=== PATIENT | male | born 1940 | race Caucasian/White ===

== ENCOUNTER 2016-04-16 20:18 | Observation (INO) | payer MEDICARE, OTHER ==
[~2016-04-16] VITALS: Ht 182.9 cm; Wt 94.5 kg
[~2016-04-16 20:18] MED LIST: APIX5TAB PO; ASPI-664 PO; ATOR20TA38 PO; CLOP75TA27 PO; LISI-524 PO; METO-448 PO; NIT4 SL; OMEP20CA9 PO; TAMS-14 PO
[2016-04-16 21:06] LABS: BASOPHIL # 0.1 10^3/ul (0.0-0.1); BASOPHILS % 0.7 % (0.0-2.0); EOSINOPHILS # 0.2 10^3/ul (0.0-0.5); EOSINOPHILS % 3.4 % (0.0-7.0); HEMATOCRIT 34.4 % (42.0-52.0); HEMOGLOBIN 11.4 g/dl (14.0-18.0); LYMPHOCYTES # 3.6 10^3/ul (0.8-2.9); LYMPHOCYTES % 48.4 % (15.0-51.0); MEAN CORPUSCULAR HEMOGLOBIN 30.7 pg (29.0-33.0); MEAN CORPUSCULAR HGB CONC 33.1 g/dl (32.0-37.0); MEAN CORPUSCULAR VOLUME 92.7 fl (82.0-101.0); MEAN PLATELET VOLUME 8.6 fl (7.4-10.4); MONOCYTE # 0.5 10^3/ul (0.3-0.9); MONOCYTES % 6.9 % (0.0-11.0); NEUTROPHILS % 40.6 % (39.0-77.0); PLATELET COUNT 197 10^3/UL (140-440); RED BLOOD COUNT 3.71 10^6/ul (4.70-6.10); RED CELL DISTRIBUTION WIDTH 14.5 % (11.5-14.5); UNCORRECTED WBC 7.4 10^3/ul (4.8-10.8); WHITE BLOOD COUNT 7.4 10^3/ul (4.8-10.8)
[2016-04-16 21:09] LABS: CONDITION 1
[2016-04-16 21:19] LABS: CHLORIDE 107 mmol/L (97-110); POTASSIUM 4.7 mmol/L (3.5-5.1); SODIUM 142 mmol/L (135-144)
[2016-04-16 21:20] LABS: INR 1.07; PARTIAL THROMBOPLASTIN TIME 29.7 Sec (25.0-35.0); PROTIME 13.9 Sec (12.2-14.2); PT RATIO 1.1
[2016-04-16 21:22] LABS: ANION GAP 15 (8-16); CARBON DIOXIDE 25 mmol/L (21-31)
[2016-04-16 21:23] LABS: BLOOD UREA NITROGEN 29 mg/dl (7-20); CALCIUM 8.9 mg/dl (8.4-10.2); GLUCOSE 111 mg/dl (70-220)
--- NOTE | 2016-04-16 21:34 | RADRPT ---
PROCEDURE: XR Chest AP portable CLINICAL INDICATION: Chest pain TECHNIQUE: An AP portable radiograph of the chest was submitted. COMPARISON: 10/06/2014 FINDINGS: Support Hardware: None Cardiovascular: The cardiovascular silhouette is stable unremarkable except for persistent atheroscl erotic change involve aorta. Lung Petty: The lung petty are clear except for minimal discoid atelectatic change seen at the regis g bases. Pleural Spaces: No pneumothorax or pleural effusion is identified. Osseous Structures: Mild diffuse degenerative spine changes are evident. Soft Tissues: The soft tissues appear unremarkable. IMPRESSION: 1. Persistent atherosclerotic change involving the aorta. 2. Mild discoid atelectasis again seen at the lung bases. 3. Mild diffuse degenerative spine changes. Physician Zacarias Date Time Electronically viewed and signed by Elodia Tate Physician on 04/16/2016 21:34 /
[2016-04-16 21:36] LABS: TROPONIN-I < 0.012 ng/ml (0.00-0.12)
--- NOTE | 2016-04-16 22:09 | ERA ---
ER Documentation Chief Complaint Date/Time DATE: 04/16/16 TIME: 22:08 Chief Complaint CP HPI The patient is a 75-year-old male, presenting to the ER because of epigastric chest pain radiating to the sternal area that began about 5 PM while he was watching TV, associated with dyspnea. He had similar symptoms about 2 years ago when he heart heart attack. The chest pain is not associated with diaphoresis, exertion, vomiting. He took one nitroglycerin by himself was treated aspirin and 3 nitroglycerin by EMS with good response. He denies abdominal pain, diarrhea, dysuria. He smokes half a pack a day and drinks socially Past medical history: CAD, hypertension, history of right lower extremity DVT, dyslipidemia, chronic kidney disease Past surgical history: Stent PCI 3 ROS All systems reviewed and are negative except as per history of present illness. Medications Home Meds Reported Medications Rosuvastatin Calcium* (Crestor*) 10 Mg Tablet, 10 MG PO DAILY, #30 TAB 04/16/16 Clonidine Hcl* (Clonidine Hcl*) 0.2 Mg Tablet, 0.2 MG PO Q6, TAB 04/16/16 Metoprolol Tartrate* (Lopressor*) 25 Mg Tab, 25 MG PO TID, #90 TAB 04/16/16 Clopidogrel Bisulfate* (Clopidogrel Bisulfate*) 75 Mg Tablet, 75 MG PO DAILY, # 30 TAB 04/16/16 Aspirin* (Aspirin* EC) 81 Mg Tablet.dr, 81 MG PO DAILY, TAB 04/16/16 Apixaban* (Eliquis*) 2.5 Mg Tablet, 2.5 MG PO BID, TAB 04/16/16 Lisinopril* (Lisinopril*) 20 Mg Tablet, 20 MG PO BID, #30 TAB 04/16/16 Tamsulosin Hcl* (Tamsulosin Hcl*) 0.4 Mg Cap.er.24h, 0.4 MG PO DAILY, CAP 04/16/16 Nitroglycerin* (Nitrostat*) 0.4 Mg Tab.subl, 0.4 MG SL Q5MIN Y for CHEST PAIN, BOTTLE 04/16/16 Discontinued Reported Medications Tamsulosin Hcl* (Flomax*) 0.4 Mg Cap.er.24h, 0.4 MG PO DAILY, CAP 02/14/14 Omeprazole* (Prilosec*) 20 Mg Capsule.dr, 20 MG PO DAILY, CAP 02/14/14 Discontinued Scripts Atorvastatin Calcium* (Atorvastatin Calcium*) 20 Mg Tab, 80 MG PO HS for 30 Days Prov:FANTA MARROQUIN 10/11/14 Nitroglycerin* (Nitrostat*) 25 Tab Subl, 0.4 MG SL Q5M Y for CHEST PAIN, #30 Prov:FANTA MARROQUIN 10/11/14 Metoprolol Tartrate* (Lopressor*) 25 Mg Tab, 25 MG PO BID for 30 Days, TAB Prov:FANTA MARROQUIN 10/11/14 Lisinopril* (Zestril*) 10 Mg Tab, 10 MG PO DAILY for 30 Days Prov:FANTA MARROQUIN 10/11/14 Clopidogrel Bisulfate (Clopidogrel) 75 Mg Tab, 75 MG PO DAILY for 30 Days Prov:FANTA MARROQUIN 10/11/14 Aspirin* (Aspirin* EC) 81 Mg Tabec, 81 MG PO DAILY for 30 Days Prov:FANTA MARROQUIN 10/11/14 Apixaban* (Eliquis*) 5 Mg Tablet, 10 MG PO BID for 30 Days Prov:FANTA MARROQUIN 10/11/14 Allergies Allergies: Coded Allergies: No Known Allergy (Verified , 04/16/16) PMhx/Soc History of Surgery: Yes (HEART STENTING X 4, IVC FILTER PLACEMENT, APPENDECTOMY ) Anesthesia Reaction: No Hx Neurological Disorder: No Hx Respiratory Disorders: No Hx Cardiac Disorders: Yes (CAD, HTN) Hx Psychiatric Problems: No Hx Miscellaneous Medical Probl: No Hx Alcohol Use: No Hx Substance Use: No Hx Tobacco Use: Yes Smoking Status: Current some day smoker Physical Exam Vitals Vital Signs Date Time Temp Pulse Resp B/P Pulse Ox O2 Delivery O2 Flow Rate FiO2 04/16/16 22:00 98.2 54 16 141/58 98 Nasal Cannula 2.0 04/16/16 21:00 98.2 58 16 146/61 98 Nasal Cannula 2.0 04/16/16 21:00 98 2.0 28 04/16/16 20:55 Nasal Cannula 2 04/16/16 20:25 98.1 74 16 175/73 98 Physical Exam Const: No acute distress. Head: Atraumatic. Eyes: Normal Conjunctiva. ENT: Normal External Ears, Nose and Mouth. Neck: Full range of motion. No meningismus. Resp: Clear to auscultation bilaterally. Cardio: Regular rate and rhythm, no murmurs. Abd: Soft, non distended, normal bowel sounds, non tender. Skin: No petechiae or rashes. Back: No midline or flank tenderness. Ext: No cyanosis, or edema. Neur: Awake and alert. No focal deficit Psych: Normal Mood and Affect. Result Diagram: 04/16/16205404/16/162054 Results 24 hrs Laboratory Tests Test 04/16/16 20:55 Activated Partial Thromboplast Time 29.7Sec Anion Gap 15 Basophils # 0.110^3/ul Basophils % 0.7% Blood Urea Nitrogen 29mg/dl Calcium Level 8.9mg/dl Carbon Dioxide Level 25mmol/L Chloride Level 107mmol/L Creatinine 1.80mg/dl Eosinophils # 0.210^3/ul Eosinophils % 3.4% Glucose Level 111mg/dl Hematocrit 34.4% Hemoglobin 11.4g/dl INR International Normalized Ratio 1.07 Lymphocytes # 3.610^3/ul Lymphocytes % 48.4% Mean Corpuscular Hemoglobin 30.7pg Mean Corpuscular Hemoglobin Concent 33.1g/dl Mean Corpuscular Volume 92.7fl Mean Platelet Volume 8.6fl Monocytes # 0.510^3/ul Monocytes % 6.9% Neutrophils # 3.010^3/ul Neutrophils % 40.6% Nucleated Red Blood Cells # 0.010^3/ul Nucleated Red Blood Cells % 0.0/100WBC Platelet Count 40873^3/UL Potassium Level 4.7mmol/L Prothrombin Time 13.9Sec Prothrombin Time Ratio 1.1 Red Blood Count 3.7110^6/ul Red Cell Distribution Width 14.5% Sodium Level 142mmol/L Troponin I < 0.012ng/ml White Blood Count 7.410^3/ul Procedures/MDM EKG: Read by emergency physician Rate/Rhythm: Normal Sinus Rhythm 67 beats per min QRS, ST, T-waves: No ST elevation, no T wave inversion, no PVC Impression: Normal EKG [place] [id number] Radiology Main Line: [phone] DIAGNOSTIC IMAGING REPORT Patient: MELIZA SEARS : 1940 Age: 75 Sex: M MR #: [id number] DOS: 04/16/162049 Ordering MD: ANTONIO VIDAL DO Location: E/R Room/Bed: PROCEDURE: XR Chest AP portable CLINICAL INDICATION: Chest pain TECHNIQUE: An AP portable radiograph of the chest was submitted. COMPARISON: 10/06/2014 FINDINGS: Support Hardware: None Cardiovascular: The cardiovascular silhouette is stable unremarkable except for persistent atherosclerotic change involve aorta. Lung Petty: The lung petty are clear except for minimal discoid atelectatic change seen at the lung bases. Pleural Spaces: No pneumothorax or pleural effusion is identified. Osseous Structures: Mild diffuse degenerative spine changes are evident. Soft Tissues: The soft tissues appear unremarkable. IMPRESSION: 1. Persistent atherosclerotic change involving the aorta. 2. Mild discoid atelectasis again seen at the lung bases. 3. Mild diffuse degenerative spine changes. Physician Zacarias Date Time Electronically viewed and signed by Physician Zacarias on 04/16/2016 21:34 RH/ CC: ANTONIO VIDAL DO MEDICAL MAKING DECISION: The patient is a 75-year-old male, with multiple cardiac risk factors, presenting acute chest pain syndrome, concerning for ACS. The differential diagnoses considered include but are not limited to acute coronary syndrome, acute myocardial infarction, pericarditis, pulmonary embolism , aortic dissection, pneumonia, pleural effusion, pneumothorax, GERD, chest wall pain. Departure Diagnosis: Primary Impression: Chest pain Additional Impression: Anemia Condition: Stable Comments I discussed the findings with the patient. I discussed the patient with the on- call hospitalist Dr. Sotelo who was made aware of the lab, the treatment, the patient condition. The patient is admitted to telemetry at 11 PM ALANA HERNANDEZ MD Apr 16, 2016 22:09
[2016-04-16] MEDS ORDERED: TAMS0.4C2 PO (22:21)
[2016-04-16] MEDS ORDERED: NIT4 SL (22:21)
[2016-04-16] MEDS ORDERED: ASPI-664 PO (22:22)
[2016-04-16] MEDS ORDERED: LISI20TA11 PO (22:22)
[2016-04-16] MEDS ORDERED: APIX2.5T PO (22:22)
[2016-04-16] MEDS ORDERED: CLOP75TA4 PO (22:23)
[2016-04-16] MEDS ORDERED: METO-448 PO (22:24)
[2016-04-16] MEDS ORDERED: CLON0.2T5 PO (22:24)
[2016-04-16] MEDS ORDERED: CRES10 PO (22:25)
--- NOTE | 2016-04-16 23:26 | HP ---
Date/Time of Note Date/Time of Note DATE: 04/16/16 TIME: 23:18 Assessment/Plan VTE Prophylaxis VTE Prophylaxis Intervention: other (eliquis) Lines/Catheters IV [facility]ter Type (from [email or web address] Saline Lock Assessment/Plan Assessment/Plan 75 yo male with a past medical history of [place] s/p PCI 2014, essential hypertension, dyslipidemia, GERD, DVT RLE, PE, BPH, who presented with chest pain. 1. Chest pain - 2/2 to ACS vs other - will admit the patient to telemetry, consult cardiology, cycle cardiac markers, TSH/Mag levels, obtain a 2D-ECHO, BB/ Morphine/Aspirin/Eliquis 2. Acute on Chronic Kidney Disease - 2/2 to ATN from # 1 - continue with IVF - low flow 3. Essential Hypertension - continue with BB/ACEI 4. Dyslipidemia - continue with statin 5. GERD - continue with omeprazole 6. BPH - continue with flomax 7. PE/DVT - s/p IVC, continue with eliquis 8. GI ppx - omeprazole 9. DVt ppx - eliquis answere all of his questions. as per clinical course. this history and physical took greater then 45 minutes to complete HPI/ROS Admit Date/Time Admit Date/Time 04/16/2016, 11:18 pm Hx of Present Illness 75 yo male with a past medical history of [place] s/p PCI 2014, essential hypertension, dyslipidemia, GERD, DVT RLE, PE, BPH, who presented with chest pain. The chest pain was substernal, radiating to his left shoulder, similar to the presentation he had in 2014, pressure like, 8/10 --> 0/10 in intensity, better with sublingual NTG given on the field, associated with nausea no vomiting, dizziness, shortness of breath. He was brought in via ambulance, and given SL NTG that help alleviate his pressure. He denies any loss of consciousness, headaches, urinary/bowel irregularities, fevers/chills, or other constitutional symptoms. ECHO: 10/06/2014 Conclusions 1. Ejection fraction is visually estimated at 55 %. Tissue Doppler/Mitral Doppler indices are consistent with impaired relaxation (Stage I diastolic dysfunction). 2. There is mild enlargement of left atrium. 3. Normal appearance and function of the mitral valve with trace physiologic regurgitation. 4. Calcified Aortic cusps appear mildly calcified. Trileaflet aortic valve. Mild aortic valve regurgitation. 5. Normal appearance of the tricuspid valve. Estimated peak RVSP is 36 mmHg. There is mild tricuspid regurgitation. ROS 14 point review of systems completed, please refer to HPI for any positive findings PMH/Family/Social Past Medical History PE, BPH Medical History: coronary artery disease, deep vein thrombosis, GERD, high cholesterol, hypertension Past Surgical History s/p IVC filter, s/p PCI multiple stents Family History Significant Family History: heart disease (4 brothers of heart attacks) Social History Alcohol Use: none Smoking Status: Current some day smoker Drug Use: none Exam/Review of Systems Vital Signs Vitals Vital Signs Date Time Temp Pulse Resp B/P Pulse Ox O2 Delivery O2 Flow Rate FiO2 04/16/16 22:00 98.2 54 16 141/58 98 Nasal Cannula 2.0 04/16/16 21:00 28 Exam Exam Gen Kin: mild distress 2/2 chest pressure, AAOx4 HEENT: NC/AT, PERRLA, EOMI, no pharyngeal erythema, no tonsillar exudates, no lymphadenopathy, no JVD, no carotid bruits NECK: supple, no thyromegaly THORAX: symmetrical, no obvious deformities CV: S1S2, RRR, no M/G/R Lungs: CTAB no W/C/R/R Abd: soft, NT/ND, +BS, no rebound, no guarding, neg HSM EXT: no edema, no ecchymosis, no clubbing, FROM Neuro: CN II-XII grossly intact, no focal deficits Psych: good mentation, alert and oriented, good mood and affect Skin: C/D/I Labs Result Diagram: 04/16/16205404/16/162054 Procedures Procedures CXR IMPRESSION: 1. Persistent atherosclerotic change involving the aorta. 2. Mild discoid atelectasis again seen at the lung bases. 3. Mild diffuse degenerative spine changes. EKG reviewed LAUREN VILLAVICENCIO MD Apr 16, 2016 23:26
[2016-04-16] MEDS ORDERED: ONDANSETRON 4 MG INJ IV PRN (23:30)
[2016-04-16] MEDS ORDERED: NACL 0.9% 3 ML SYG IV SCH (23:30)
[2016-04-16] MEDS ORDERED: morphine 2 MG INJ IV PRN (23:30)
[2016-04-16] MEDS ORDERED: DOCUSATE SODIUM 100 MG CAP PO PRN (23:30)
[2016-04-16] MEDS ORDERED: NITROGLYCERIN (SL) 0.4 MG TAB SL PRN (23:30)
[2016-04-16] MEDS ORDERED: ACETAMINOPHEN 325 MG TAB PO PRN (23:30)
[2016-04-16] MEDS ORDERED: LORAZEPAM 2 MG INJ IV PRN (23:30)
[2016-04-17] VITALS (10 sets, daily range): BP systolic 139–189; BP diastolic 67–77; PULSE 52–56; RESP 18–20; TEMP 98.5; Ht 182.9 cm; Wt 94.5 kg
[2016-04-17] MEDS ORDERED: SOD CHLORIDE 0.9% 1,000 ML IV ONE (01:00)
[2016-04-17] MEDS: SOD CHLORIDE 0.9% 1,000 ML IV SCH ×2 (01:43→22:19)
[2016-04-17 03:53] LABS: BASOPHILS % 0.6 % (0.0-2.0); EOSINOPHILS # 0.3 10^3/ul (0.0-0.5); EOSINOPHILS % 3.6 % (0.0-7.0); HEMATOCRIT 31.2 % (42.0-52.0); HEMOGLOBIN 10.5 g/dl (14.0-18.0); LYMPHOCYTES # 3.6 10^3/ul (0.8-2.9); LYMPHOCYTES % 49.8 % (15.0-51.0); MEAN CORPUSCULAR HEMOGLOBIN 31.1 pg (29.0-33.0); MEAN CORPUSCULAR HGB CONC 33.5 g/dl (32.0-37.0); MEAN CORPUSCULAR VOLUME 92.8 fl (82.0-101.0); MEAN PLATELET VOLUME 8.5 fl (7.4-10.4); MONOCYTE # 0.5 10^3/ul (0.3-0.9); MONOCYTES % 6.7 % (0.0-11.0); NEUTROPHIL # 2.8 10^3/ul (1.6-7.5); NEUTROPHILS % 39.3 % (39.0-77.0); PLATELET COUNT 181 10^3/UL (140-440); RED BLOOD COUNT 3.37 10^6/ul (4.70-6.10); RED CELL DISTRIBUTION WIDTH 14.3 % (11.5-14.5); UNCORRECTED WBC 7.2 10^3/ul (4.8-10.8); WHITE BLOOD COUNT 7.2 10^3/ul (4.8-10.8)
[2016-04-17 03:59] LABS: CONDITION 1
[2016-04-17 04:07] LABS: POTASSIUM 4.7 mmol/L (3.5-5.1)
[2016-04-17 04:08] LABS: CHOL/HDL RATIO 4.2 RATIO; MAGNESIUM 1.8 mg/dl (1.7-2.5)
[2016-04-17 04:09] LABS: CREATINE KINASE 41 IU/L (23-200); CREATININE 1.68 mg/dl (0.61-1.24)
[2016-04-17 04:10] LABS: CALCIUM 8.3 mg/dl (8.4-10.2)
[2016-04-17 04:24] LABS: CK-MB 0.52 ng/ml (0.0-2.4); TROPONIN-I < 0.010 ng/ml (0.00-0.12)
[2016-04-17 04:39] LABS: THYROID STIMULATING HORMONE 3.96 MIU/L (0.465-4.680)
[2016-04-17] MEDS: APIXABAN 5 MG TABLET PO SCH ×2 (09:51→22:19)
[2016-04-17] MEDS: METOPROLOL 25 MG TAB PO SCH ×2 (09:51→12:54)
[2016-04-17] MEDS: CLOPIDOGREL 75 MG TAB PO SCH (09:51)
[2016-04-17] MEDS: LISINOPRIL 20 MG TAB PO SCH ×2 (09:51→22:18)
[2016-04-17] MEDS: FAMOTIDINE 20 MG INJ IV SCH ×2 (09:51→22:15)
[2016-04-17] MEDS: ASPIRIN (EC) 81 MG TAB PO SCH (09:51)
[2016-04-17 09:58] LABS: CREATINE KINASE 43 IU/L (23-200)
[2016-04-17 10:10] LABS: CK-MB 0.52 ng/ml (0.0-2.4)
[2016-04-17 10:13] LABS: TROPONIN-I < 0.010 ng/ml (0.00-0.12)
--- NOTE | 2016-04-17 16:12 | RADRPT ---
Echocardiogram Report Patient Name: MELIZA SEARS Gender: Male Date: 1940 Study Date: 17-Apr-2016 Assembler Brazer: Peggy Chan RDCS Location: ER Ref. Physician: LAUREN VILLAVICENCIO Quality: Good Procedures: Transthoracic echocardiogram with complete 2D, M-Mode, and doppler examination. Indications: Chest Pain. 2D/M Mode Doppler Measurement Value Normal Ranges Measurement Value Normal Ranges LVIDd 2D 5.1 3.5 - 5.6 cm AV Peak Alejandro 1.2 m/sec LVIDs 2D 3.5 2.1 - 4.1 cm AV Peak PG 5.5 mmHg LVPWd 2D 0.8 0.6 - 1.1 cm AI Peak PG 56.8 mmHg IVSd 2D 0.9 0.6 - 1.1 cm AI Peak Alejandro 3.8 m/sec AoR Diam 2D 2.6 2.0 - 3.7 cm AI PHT 485.5 msec EDV 2D 123.5 cm3 LVOT Peak Alejandro 0.7 m/sec ESV 2D 43.0 cm3 LVOT Peak PG 2.1 mmHg LA Dimen 2D 3.7 2.3 - 4.0 cm MV E Peak Alejandro 1.1 m/sec MV A Peak Alejandro 0.1 m/sec MV E/A 21.3 MV Decel Time 223 msec MV Decel [place] 5 MV E/A 21.3 TR Peak Alejandro 2.6 m/sec TR Peak PG 26.2 mmHg RVSP 34.0 mmHg Findings Left Ventricle: Normal left ventricular systolic function. Normal left ventricular cavity size. Normal left ventricular wall thickness. Ejection fraction is visually estimated at 5560 %. Right Ventricle: Normal right ventricular size. Normal right ventricular systolic function. Left Atrium: The left atrium is normal in size. Right Atrium: The right atrium is normal in size. Mitral Valve: Mitral valve leaflets appear mildly thickened. Mild mitral valve regurgitation. Aortic Valve: Aortic cusps appear mildly calcified. Mild aortic valve regurgitation. Tricuspid Valve: Estimated peak PA systolic pressure 34 mmHg. There is mild tricuspid regurgitation. Pulmonic Valve: There is trace pulmonic regurgitation. Pericardium: Normal pericardium with no significant pericardial effusion. Aorta: Normal aortic root. IVC: Normal size and no respiratory collapse consistent with elevated right atrial pressure. Conclusions 1.The left ventricle is normal in size and systolic function. 2.Estimated left ventricular ejection fraction of 55-60%. 3.Aortic sclerosis without stenosis. Mild aortic regurgitation. Electronically Signed By: Lyle Madison 17-Apr-2016 16:11:49 -0800 Patient Name: MELIZA SEARS Study Date: 17-Apr-[id number]
--- NOTE | 2016-04-17 17:17 | CONS ---
Date/Time of Note Date/Time of Note DATE: 04/17/16 TIME: 17:00 Assessment/Plan Assessment/Plan Chief Complaint/Hosp Course Assessment: Chest pain - ruled out for myocardial infarction, suspect angina in setting of elevated blood pressures Accelerated hypertension Acute kidney injury on chronic kidney disease Coronary artery disease - status post multiple coronary stents, most recently October 2014 Dyslipidemia History of deep vein thrombosis and pulmonary embolism - status post IVC filter Gastroesophageal reflux disease Benign prostate hyperplasia Recommendations: -echocardiogram showed normal LVEF 55-60% without segmental wall motion abnormalities -continue aspirin 81mg, clopidogrel 75mg, and Eliquis 2.5mg BID - will eventually discontinue clopidogrel as greater than one year from coronary stenting, but will defer at this time given recent chest pain -continue statin -add Imdur 30mg daily -add amlodipine 5mg daily -change metoprolol to carvedilol 6.25mg BID (for better blood pressure control with less negative chronotropic effects), up titrate as tolerated -continue lisinopril 20mg BID, monitor renal function -continue clonidine 0.2mg Q6hr -defer repeat coronary evaluation at this time, consider cardiac stress testing as outpatient if continued chest pain despite blood pressure control Problems: Consultation Date/Type/Reason Admit Date/Time 04/16/2016, 11:18 pm Type of Consultation: Cardiology Reason for Consultation chest pain Referring Provider: LAUREN VILLAVICENCIO MD Hx of Present Illness The patient is a 75 year-old male with coronary artery disease who presents with chest pain. He reports intermittent resting chest pressure for the past week. He also notes elevated blood pressures to the 200s during this time period. He has a history of coronary stenting in the left circumflex, first obtuse marginal, second obtuse marginal, and left anterior descending arteries. Most recently, he has a ST-elevation myocardial infarction and received coronary stenting to the first diagonal branch in October 2014. Other coronary arteries were noted to have nonobstructive disease at that time. 14 point review of systems without changes. Past Medical History Coronary artery disease - status post multiple coronary stents, most recently October 2014 Hypertension Dyslipidemia Chronic kidney disease History of deep vein thrombosis and pulmonary embolism - status post IVC filter Gastroesophageal reflux disease Benign prostate hyperplasia Family History Significant Family History: other (noncontributory) Social History Alcohol Use: none Smoking Status: Current some day smoker Drug Use: none Exam/Review of Systems Vital Signs Vitals Vital Signs Date Time Temp Pulse Resp B/P Pulse Ox O2 Delivery O2 Flow Rate FiO2 04/17/16 16:23 52 04/17/16 15:47 98.9 18 175/75 96 04/17/16 08:46 Room Air 04/17/16 07:00 2.0 04/16/16 21:00 28 Exam Constitutional: alert, oriented, well developed Psych: nl mood/affect, no complaints Head: atraumatic, normocephalic Eyes: nl conjunctiva, nl lids ENMT: nl external ears & nose Neck: non-tender, supple, No jvd Respiratory: clear to auscultation, normal air movement Cardiovascular: regular rate and rhythm, systolic murmur Gastrointestinal: non-tender, soft Musculoskeletal: nl extremities to inspection Neurological: nl mental status, nl speech Skin: nl turgor Results Result Diagram: 04/17/16 03304/17/16 0330 Results 24 hrs Laboratory Tests Test 04/16/16 20:55 04/17/16 03:30 04/17/16 09:27 Activated Partial Thromboplast Time 29.7 Anion Gap 15 15 Basophils # 0.1 0.0 Basophils % 0.7 0.6 Blood Urea Nitrogen 29 H 26 H Calcium Level 8.9 8.3 L Carbon Dioxide Level 25 24 Chloride Level 107 110 Creatinine 1.80 H 1.68 H Eosinophils # 0.2 0.3 Eosinophils % 3.4 3.6 Glucose Level 111 100 Hematocrit 34.4 L 31.2 L Hemoglobin 11.4 L 10.5 L INR International Normalized Ratio 1.07 Lymphocytes # 3.6 H 3.6 H Lymphocytes % 48.4 49.8 Mean Corpuscular Hemoglobin 30.7 31.1 Mean Corpuscular Hemoglobin Concent 33.1 33.5 Mean Corpuscular Volume 92.7 92.8 Mean Platelet Volume 8.6 8.5 Monocytes # 0.5 0.5 Monocytes % 6.9 6.7 Neutrophils # 3.0 2.8 Neutrophils % 40.6 39.3 Nucleated Red Blood Cells # 0.0 0.0 Nucleated Red Blood Cells % 0.0 0.0 Platelet Count 197 181 Potassium Level 4.7 4.7 Prothrombin Time 13.9 Prothrombin Time Ratio 1.1 Red Blood Count 3.71 L 3.37 L Red Cell Distribution Width 14.5 14.3 Sodium Level 142 144 Troponin I < 0.012 < 0.010 < 0.010 White Blood Count 7.4 7.2 Cholesterol Level 124 Cholesterol/HDL Ratio 4.2 Creatine Kinase 41 43 Creatine Kinase Index 1.3 1.2 Creatinine Kinase MB (Mass) 0.52 0.52 HDL Cholesterol 29 L Hemoglobin A1c 6.0 H LDL Cholesterol, Calculated 80 Magnesium Level 1.8 Thyroid Stimulating Hormone (TSH) 3.960 Triglycerides Level 76 Medications Medications Current Medications Sodium Chloride (NS) 1,000 ml @ 50 mls/hr Q20H IV Last administered on 01:43; Admin Dose 50 MLS/HR; Start 04/16/16 at 23:14 Lorazepam (Ativan) 0.5 mg Q6H PRN IV ANXIETY; Start 04/16/16 at 23:30 Ondansetron HCl (Zofran Inj) 4 mg Q6H PRN IV NAUSEA AND/OR VOMITING; Start 03/21 at 23:30 Nitroglycerin (Nitroglycerin (Sl Tab) 0.4 Mg) 1 tab Q5M PRN SL CHEST PAIN; Start 04/16/16 at 23:30 Acetaminophen (Tylenol Tab) 650 mg Q6H PRN PO PAIN LEVEL 1-3 OR FEVER; Start at 23:30 Morphine Sulfate (morphine) 2 mg Q4H PRN IV PAIN LEVEL 7-10; Start 04/16/16 at 23:30 Docusate Sodium (Colace) 100 mg Q12H PRN PO CONSTIPATION; Start 04/16/16 at 23: 30 Famotidine (Pepcid Iv) 20 mg Q12 IV Last administered on 04/17/16 09:51; Admin Dose 20 MG; Start 04/17/16 at 09:00 Apixaban (Eliquis) 2.5 mg BID PO Last administered on 04/17/16 09:51; Admin Dose 2.5 MG; Start 04/17/16 at 09:00 Aspirin (Halfprin) 81 mg DAILY PO Last administered on 04/17/16 09:51; Admin Dose 81 MG; Start 04/17/16 at 09:00 Clonidine (Catapres) 0.2 mg Q6 PO Last administered on 04/17/16 12:54; Admin Dose 0.2 MG; Start 04/17/16 at 00:00 Clopidogrel Bisulfate (plaVIX) 75 mg DAILY PO Last administered on 04/17/16 09 :51; Admin Dose 75 MG; Start 04/17/16 at 09:00 Lisinopril (Zestril) 20 mg BID PO Last administered on 04/17/16 09:51; Admin Dose 20 MG; Start 04/17/16 at 09:00 Metoprolol Tartrate (Lopressor) 25 mg TID PO Last administered on 04/17/16 12: 54; Admin Dose 25 MG; Start 04/17/16 at 09:00 Tamsulosin HCl (Flomax) 0.4 mg DAILY@21 PO ; Start 04/17/16 at 21:00 Atorvastatin Calcium (Lipitor) 40 mg DAILY@21 PO ; Start 04/17/16 at 21:00 HEATHER HANNAH MD Apr 17, 2016 17:13
[2016-04-17] MEDS: AMLODIPINE 5 MG TAB PO SCH (18:02)
[2016-04-17] MEDS: ISOSORBIDE MONONITRATE(SR)30 MG TAB PO SCH (18:02)
[2016-04-17] MEDS ORDERED: TAMSULOSIN (SR) 0.4 MG CAP PO SCH (21:00)
[2016-04-17] MEDS ORDERED: ATORVASTATIN 40 MG TAB PO SCH (21:00)
[2016-04-18] VITALS (9 sets, daily range): BP systolic 137–169; BP diastolic 63–74; PULSE 49–58; RESP 18–20
[2016-04-18] MEDS: FAMOTIDINE 20 MG INJ IV SCH (09:06)
[2016-04-18] MEDS: APIXABAN 5 MG TABLET PO SCH (09:06)
[2016-04-18] MEDS: AMLODIPINE 5 MG TAB PO SCH (09:06)
[2016-04-18] MEDS: ASPIRIN (EC) 81 MG TAB PO SCH (09:08)
[2016-04-18] MEDS: CLOPIDOGREL 75 MG TAB PO SCH (09:08)
[2016-04-18] MEDS: ISOSORBIDE MONONITRATE(SR)30 MG TAB PO SCH (09:08)
[2016-04-18] MEDS: LISINOPRIL 20 MG TAB PO SCH (09:08)
[2016-04-18] MEDS ORDERED: FAMO-18 PO (12:10)
[2016-04-18] MEDS ORDERED: ISOS30TA5 PO (12:10)
[2016-04-18] MEDS ORDERED: AMLO-145 PO (12:10)
[2016-04-18] MEDS ORDERED: CARV6.2579 PO (12:10)
[2016-04-18] MEDS ORDERED: DOCU-144 PO (13:39)
[2016-04-18] MEDS ORDERED: MAGNESIUM CITRATE 300 ML BTL PO ONE (14:00)
--- NOTE | 2016-04-18 17:09 | DS ---
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 Patient Condition: Stable Consults * Gricelda: cardiology . Procedures Echocardiogram Report Patient Name: MELIZA SEARS Gender: Male Date: 1940 Study Date: 17-Apr-2016 Citizen Participation Specialist: Peggy Chan RDCS Location: ER Ref. Physician: LAUREN VILLAVICENCIO Quality: Good Procedures: Transthoracic echocardiogram with complete 2D, M-Mode, and doppler examination. Indications: Chest Pain. 2D/M Mode Doppler Measurement Value Normal Ranges Measurement Value Normal Ranges LVIDd 2D 5.1 3.5 - 5.6 cm AV Peak Alejandro 1.2 m/sec LVIDs 2D 3.5 2.1 - 4.1 cm AV Peak PG 5.5 mmHg LVPWd 2D 0.8 0.6 - 1.1 cm AI Peak PG 56.8 mmHg IVSd 2D 0.9 0.6 - 1.1 cm AI Peak Alejandro 3.8 m/sec AoR Diam 2D 2.6 2.0 - 3.7 cm AI PHT 485.5 msec EDV 2D 123.5 cm3 LVOT Peak Alejandro 0.7 m/sec ESV 2D 43.0 cm3 LVOT Peak PG 2.1 mmHg LA Dimen 2D 3.7 2.3 - 4.0 cm MV E Peak Alejandro 1.1 m/sec MV A Peak Alejandro 0.1 m/sec MV E/A 21.3 MV Decel Time 223 msec MV Decel [place] 5 MV E/A 21.3 TR Peak Alejandro 2.6 m/sec TR Peak PG 26.2 mmHg RVSP 34.0 mmHg Findings Left Ventricle: Normal left ventricular systolic function. Normal left ventricular cavity size. Normal left ventricular wall thickness. Ejection fraction is visually estimated at 5560 %. Right Ventricle: Normal right ventricular size. Normal right ventricular systolic function. Left Atrium: The left atrium is normal in size. Right Atrium: The right atrium is normal in size. Mitral Valve: Mitral valve leaflets appear mildly thickened. Mild mitral valve regurgitation. Aortic Valve: Aortic cusps appear mildly calcified. Mild aortic valve regurgitation. Tricuspid Valve: Estimated peak PA systolic pressure 34 mmHg. There is mild tricuspid regurgitation. Pulmonic Valve: There is trace pulmonic regurgitation. Pericardium: Normal pericardium with no significant pericardial effusion. Aorta: Normal aortic root. IVC: Normal size and no respiratory collapse consistent with elevated right atrial pressure. Conclusions 1. The left ventricle is normal in size and systolic function. 2. Estimated left ventricular ejection fraction of 55-60%. 3. Aortic sclerosis without stenosis. Mild aortic regurgitation. Electronically Signed By: Lyle Madison PROCEDURE: XR Chest AP portable CLINICAL INDICATION: Chest pain TECHNIQUE: An AP portable radiograph of the chest was submitted. COMPARISON: 10/06/2014 FINDINGS: Support Hardware: None Cardiovascular: The cardiovascular silhouette is stable unremarkable except for persistent atherosclerotic change involve aorta. Lung Petty: The lung petty are clear except for minimal discoid atelectatic change seen at the lung bases. Pleural Spaces: No pneumothorax or pleural effusion is identified. Osseous Structures: Mild diffuse degenerative spine changes are evident. Soft Tissues: The soft tissues appear unremarkable. IMPRESSION: 1. Persistent atherosclerotic change involving the aorta. 2. Mild discoid atelectasis again seen at the lung bases. 3. Mild diffuse degenerative spine changes. R Lea, Physician Date Time Electronically viewed and signed by Elodia Tate Physician on 04/16/2016 21:34 . Hx of Present Illness 75 yo male with a past medical history of [place] s/p PCI 2014, essential hypertension, dyslipidemia, GERD, DVT RLE, PE, BPH, who presented with chest pain. The chest pain was substernal, radiating to his left shoulder, similar to the presentation he had in 2014, pressure like, 8/10 --> 0/10 in intensity, better with sublingual NTG given on the field, associated with nausea no vomiting, dizziness, shortness of breath. He was brought in via ambulance, and given SL NTG that help alleviate his pressure. He denies any loss of consciousness, headaches, urinary/bowel irregularities, fevers/chills, or other constitutional symptoms. . Hospital Course Patient was admitted and managed according to protocol. He was r/o for ACS with 3 negative cardiac enzymes. Cardiology saw and gave the following recommendations: Recommendations: -echocardiogram showed normal LVEF 55-60% without segmental wall motion abnormalities -continue aspirin 81mg, clopidogrel 75mg, and Eliquis 2.5mg BID - will eventually discontinue clopidogrel as greater than one year from coronary stenting, but will defer at this time given recent chest pain -continue statin -add Imdur 30mg daily -add amlodipine 5mg daily -change metoprolol to carvedilol 6.25mg BID (for better blood pressure control with less negative chronotropic effects), up titrate as tolerated -continue lisinopril 20mg BID, monitor renal function -continue clonidine 0.2mg Q6hr -defer repeat coronary evaluation at this time, consider cardiac stress testing as outpatient if continued chest pain despite blood pressure control Comorbidities were also aggressively managed as per Med records. Patient at this time has been evaluated and examined in detail and is assessed to be in stable condition and ready for discharge. . Home Meds Active Scripts Docusate Sodium* (Colace*) 100 Mg Capsule, 100 MG PO BID, #60 CAP Prov:NELLY BAKER . 04/18/16 Famotidine* (Pepcid*) 20 Mg Tablet, 20 MG PO BID, #60 [facility] 04/18/16 Isosorbide Mononitrate* (Isosorbide Mononitrate*) 30 Mg Tab.er.24h, 30 MG PO DAILY for 30 Days, 1 [facility] 04/18/16 Carvedilol* (Carvedilol*) 6.25 Mg Tablet, 6.25 MG PO BID for 30 Days, TAB 1 [facility] 04/18/16 Amlodipine Besylate* (Amlodipine Besylate*) 5 Mg Tablet, 5 MG PO DAILY for 30 Days, TAB 1 Refill Prov:NELLY BAKER . 04/18/16 Reported Medications Rosuvastatin Calcium* (Crestor*) 10 Mg Tablet, 10 MG PO DAILY, #30 TAB 04/16/16 Clonidine Hcl* (Clonidine Hcl*) 0.2 Mg Tablet, 0.2 MG PO Q6, TAB 04/16/16 Clopidogrel Bisulfate* (Clopidogrel Bisulfate*) 75 Mg Tablet, 75 MG PO DAILY, # 30 TAB 04/16/16 Aspirin* (Aspirin* EC) 81 Mg Tablet.dr, 81 MG PO DAILY, TAB 04/16/16 Apixaban* (Eliquis*) 2.5 Mg Tablet, 2.5 MG PO BID, TAB 04/16/16 Lisinopril* (Lisinopril*) 20 Mg Tablet, 20 MG PO BID, #30 TAB 04/16/16 Tamsulosin Hcl* (Tamsulosin Hcl*) 0.4 Mg Cap.er.24h, 0.4 MG PO DAILY, CAP 04/16/16 Nitroglycerin* (Nitrostat*) 0.4 Mg Tab.subl, 0.4 MG SL Q5MIN Y for CHEST PAIN, BOTTLE 04/16/16 Discontinued Reported Medications Metoprolol Tartrate* (Lopressor*) 25 Mg Tab, 25 MG PO TID, #90 TAB 04/16/16 Tamsulosin Hcl* (Flomax*) 0.4 Mg Cap.er.24h, 0.4 MG PO DAILY, CAP 02/14/14 Omeprazole* (Prilosec*) 20 Mg Capsule.dr, 20 MG PO DAILY, CAP 02/14/14 Discontinued Scripts Atorvastatin Calcium* (Atorvastatin Calcium*) 20 Mg Tab, 80 MG PO HS for 30 Days Prov:FANTA MARROQUIN 10/11/14 Nitroglycerin* (Nitrostat*) 25 Tab Subl, 0.4 MG SL Q5M Y for CHEST PAIN, #30 Prov:FANTA MARROQUIN 10/11/14 Metoprolol Tartrate* (Lopressor*) 25 Mg Tab, 25 MG PO BID for 30 Days, TAB Prov:FANTA MARROQUIN 10/11/14 Lisinopril* (Zestril*) 10 Mg Tab, 10 MG PO DAILY for 30 Days Prov:FANTA MARROQUIN 10/11/14 Clopidogrel Bisulfate (Clopidogrel) 75 Mg Tab, 75 MG PO DAILY for 30 Days Prov:FANTA MARROQUIN 10/11/14 Aspirin* (Aspirin* EC) 81 Mg Tabec, 81 MG PO DAILY for 30 Days Prov:FANTA MARROQUIN 10/11/14 Apixaban* (Eliquis*) 5 Mg Tablet, 10 MG PO BID for 30 Days Prov:FANTA MARROQUIN 10/11/14 Follow-up Plan * F/u with your [facility] in 1-2 weeks * Followup with your primary doctor within the next 1-2 weeks. If you don't have one please let someone know, we can give you resources that may help you pick one. You may also call your insurance company to assign one to you. Review your medication list with your nurse before leaving and if you need new prescriptions please let your nurse know. I may have made changes to your home medications or given you new prescriptions , please let your primary doctor know as well. Stay compliant with your medications and report any side effects to your PCP or pharmacist. Return to the ER if you have any concerns and cannot reach your doctors or call your insurance company, they usually have a nurse that can help you. . NELLY BAKER Apr 18, 2016 17:09
== END 2016-04-18 16:25 | disposition home or self-care (01) ==
LOC: E/R 20:18 → TEL 23:06
PROVIDERS: ADMIT Student in an Organized Health Care Education/Training Program; ATTEND Student in an Organized Health Care Education/Training Program
DX: R07.9 Chest pain, unspecified (principal); I25.10 Atherosclerotic heart disease of native coronary artery without angina pectoris; Z95.5 Presence of coronary angioplasty implant and graft; E78.5 Hyperlipidemia, unspecified; I12.9 Hypertensive chronic kidney disease with stage 1 through stage 4 chronic kidney disease, or unspecified chronic kidney disease; N18.9 Chronic kidney disease, unspecified; N17.9 Acute kidney failure, unspecified; F17.200 Nicotine dependence, unspecified, uncomplicated; N40.0 Benign prostatic hyperplasia without lower urinary tract symptoms; E78.00 Pure hypercholesterolemia, unspecified; K21.9 Gastro-esophageal reflux disease without esophagitis; Z86.718 Personal history of other venous thrombosis and embolism; Z86.711 Personal history of pulmonary embolism; Z79.82 Long term (current) use of aspirin
CPT/HCPCS: 36415; 71010; 80048; 80061; 82550; 82553; 83036; 83735; 84443; 84484; 85025; 85610; 85730; 93005; 93306; 99285; G0378; J7030

== ENCOUNTER 2016-09-27 09:47 | Emergency (ER) | payer MEDICARE, OTHER ==
[~2016-09-27] VITALS: Ht 170.2 cm; Wt 85.0 kg
[~2016-09-27 09:47] MED LIST changes: +AMLO-145 PO; +APIX2.5T PO; -APIX5TAB PO; -ATOR20TA38 PO; +CARV6.2579 PO; +CLON0.2T5 PO; -CLOP75TA27 PO; +CLOP75TA4 PO; +CRES10 PO; +DOCU-144 PO; +FAMO-18 PO; +ISOS30TA5 PO; -LISI-524 PO; +LISI20TA11 PO; -METO-448 PO; -OMEP20CA9 PO; -TAMS-14 PO; +TAMS0.4C2 PO
[2016-09-27 09:56] VITALS: Ht 170.2 cm; Wt 85.0 kg
--- NOTE | 2016-09-27 10:28 | ERD ---
ER Documentation Chief Complaint Date/Time DATE: 09/27/16 TIME: 10:26 Chief Complaint lft sd numb/ting yesterday and vomiting. weakness and MACK today HPI Patient is a 75-year-old male who presents with gradual onset, constant, moderate dizziness described as a spinning sensation and loss of balance for the last day. The patient states that she feels nauseous, and had one episode of vomiting today. He reports a mild, gradual onset, intermittent headache associated with the symptoms. He reports that the symptoms are exacerbated by movements of the head or standing up. He denies diarrhea, fever, focal weakness or numbness, diplopia. He denies dysuria. He reports having similar symptoms 3 years ago, but did not seek medical care. The patient reports bilateral tinnitus for several months. He denies hearing loss. The patient is on Eliquis and aspirin. ROS All systems reviewed and are negative except as per history of present illness. Medications Home Meds Active Scripts Meclizine Hcl* (Antivert*) 12.5 Mg Tab, 25 MG PO Q6H Y for DIZZINESS, #20 TAB Prov:TETE MARISCAL MD 09/27/16 Docusate Sodium* (Colace*) 100 Mg Capsule, 100 MG PO BID, #60 CAP Prov:NELLY BAKER . 04/18/16 Famotidine* (Pepcid*) 20 Mg Tablet, 20 MG PO BID, #60 TAB Prov:NELLY BAKER . 04/18/16 Isosorbide Mononitrate* (Isosorbide Mononitrate*) 30 Mg Tab.er.24h, 30 MG PO DAILY for 30 Days, 1 Refill Prov:NELLY BAKER 04/18/16 Carvedilol* (Carvedilol*) 6.25 Mg Tablet, 6.25 MG PO BID for 30 Days, TAB 1 Refill Prov:NELLY BAKER 04/18/16 Amlodipine Besylate* (Amlodipine Besylate*) 5 Mg Tablet, 5 MG PO DAILY for 30 Days, TAB 1 Refill Prov:NELLY BAKER 04/18/16 Reported Medications Rosuvastatin Calcium* (Crestor*) 10 Mg Tablet, 10 MG PO DAILY, #30 TAB 04/16/16 Clonidine Hcl* (Clonidine Hcl*) 0.2 Mg Tablet, 0.2 MG PO Q6, TAB 04/16/16 Clopidogrel Bisulfate* (Clopidogrel Bisulfate*) 75 Mg Tablet, 75 MG PO DAILY, # 30 TAB 04/16/16 Aspirin* (Aspirin* EC) 81 Mg Tablet.dr, 81 MG PO DAILY, TAB 04/16/16 Apixaban* (Eliquis*) 2.5 Mg Tablet, 2.5 MG PO BID, TAB 04/16/16 Lisinopril* (Lisinopril*) 20 Mg Tablet, 20 MG PO BID, #30 TAB 04/16/16 Tamsulosin Hcl* (Tamsulosin Hcl*) 0.4 Mg Cap.er.24h, 0.4 MG PO DAILY, CAP 04/16/16 Nitroglycerin* (Nitrostat*) 0.4 Mg Tab.subl, 0.4 MG SL Q5MIN Y for CHEST PAIN, BOTTLE 04/16/16 Allergies Allergies: Coded Allergies: No Known Allergy (Verified , 04/16/16) PMhx/Soc Past medical history: Hypertension, hyperlipidemia, coronary artery disease, peripheral artery disease, DVT Past surgical history: Coronary stents, IVC filter Social history: Smokes cigarettes, drinks alcohol occasionally History of Surgery: Yes (Appendectomy, stents x4, IVC filter) Anesthesia Reaction: No Hx Neurological Disorder: No Hx Respiratory Disorders: Yes (PE) Hx Cardiac Disorders: Yes (HTN, CA, DLD, DVT, PE) Hx Psychiatric Problems: No Hx Miscellaneous Medical Probl: No Hx Alcohol Use: No Hx Substance Use: No Hx Tobacco Use: Yes Smoking Status: Current every day smoker FmHx Family History: No coronary disease, No diabetes Physical Exam Vitals Vital Signs Date Time Temp Pulse Resp B/P Pulse Ox O2 Delivery O2 Flow Rate FiO2 09/27/16 12:57 68 18 145/75 100 Room Air 09/27/16 09:56 97.7 64 16 155/67 100 Physical Exam Const: Alert, no acute distress Head: Atraumatic Eyes: Normal Conjunctiva, no pallor, no icterus ENT: Normal External Ears, Nose and Mouth. Mucous membranes moist Neck: Full range of motion..~ No meningismus. No carotid bruit Resp: Clear to auscultation bilaterally, no wheezes, no rales Cardio: Regular rate and rhythm, no murmurs Abd: Soft, non tender, non distended. Skin: No petechiae or rashes Back: No midline or flank tenderness Ext: No cyanosis, or edema Neur: Awake and alert, cranial nerves II through XII intact bilaterally, strength and sensation full in 4 extremities, no pronator drift, no dysmetria, no nystagmus. Psych: Normal Mood and Affect Result Diagram: 09/27/16 1102 09/27/16 1102 Results 24 hrs Laboratory Tests Test 09/27/16 11:02 White Blood Count 6.210^3/ul Red Blood Count 3.9910^6/ul Hemoglobin 12.1g/dl Hematocrit 37.3% Mean Corpuscular Volume 93.5fl Mean Corpuscular Hemoglobin 30.3pg Mean Corpuscular Hemoglobin Concent 32.4g/dl Red Cell Distribution Width 14.0% Platelet Count 34194^3/UL Mean Platelet Volume 10.3fl Neutrophils % 52.8% Lymphocytes % 34.9% Monocytes % 7.4% Eosinophils % 3.8% Basophils % 0.8% Nucleated Red Blood Cells % 0.0/100WBC Neutrophils # 3.310^3/ul Lymphocytes # 2.210^3/ul Monocytes # 0.510^3/ul Eosinophils # 0.210^3/ul Basophils # 0.110^3/ul Nucleated Red Blood Cells # 0.010^3/ul Prothrombin Time Pending Prothrombin Time Ratio 1.1 INR International Normalized Ratio Pending Sodium Level 140mmol/L Potassium Level 4.8mmol/L Chloride Level 109mmol/L Carbon Dioxide Level 26mmol/L Anion Gap 10 Blood Urea Nitrogen 22mg/dl Creatinine 1.38mg/dl Glucose Level 88mg/dl Calcium Level 9.1mg/dl Current Medications Medications (Trade) Dose Ordered Sig/Nghia Route PRN Reason Start Time Stop Time Status Last Admin Dose Admin Meclizine HCl (Antivert) 25 mg ONCE ONCE PO 09/27/16 10:30 09/27/16 10:31 DC 09/27/16 11:03 Procedures/MDM EKG read by me: Time 1043, rate 68 Rhythm: Normal sinus [place]: Normal Intervals: Normal ST-T waves: no ischemic changes Ectopy: No Q-waves: No Impression: No evidence of ischemia or arrhythmia MDM: Patient is a 75-year-old male who presents with 1 day of vertigo associated with head movements and difficulty with balance when he walks. The patient has no other associated neurological symptoms, and has a normal neurological evaluation. A head CT was performed given that the patient is on anticoagulation, and shows no bleed or other acute abnormality. The patient's labs are unremarkable. The patient was given a dose of meclizine, and states that his symptoms have resolved. He would like to go home at this time I will give him a prescription for meclizine, and have advised him on return precautions and the need for PMD follow-up if his symptoms do not resolve. The patient has had prior episodes for the last 3 years, and also has tinnitus chronically. I advised that he follow-up with a ENT as an outpatient. Departure Diagnosis: Primary Impression: Vertigo Condition: TETE Tapia MD Sep 27, 2016 10:28
[2016-09-27] MEDS ORDERED: MECLIZINE 12.5 MG TAB PO ONE (10:30)
--- NOTE | 2016-09-27 10:45 | RADRPT ---
PROCEDURE: CT Brain without contrast. CLINICAL INDICATION: Headache and dizziness. TECHNIQUE: A CT of the brain without contrast was performed utilizing axial sections from the skul l base through the vertex. The patient was scanned without intravenous contrast enhancement. [place] l and coronal reformatted images were obtained using the data from the axial images. Total exam DLP is 720.23 mGy-cm. CTDIvol is 43.16 mGy. One or more of the following dose reduction techniques we re used: Automated exposure control, adjustment of the mA and/or kV according to patient size, use o f iterative reconstruction technique. COMPARISON: None available FINDINGS: There is normal martinez-white matter differentiation. There is enlargement of the ventricles and subarachnoid spaces consistent with atrophy. There is decreased attenuation of the periventricular white matter consistent with microangiopathic ischemic change. There is no intracranial hemorrhage or space-occupying lesion. There are vascular calcifications consistent with atherosclerosis. There is no skull fracture or lytic lesion. IMPRESSION: 1. Atrophy. 2. Microangiopathic ischemic change. 3. Atherosclerosis. 4. Otherwise unremarkable noncontrast CT scan of the brain. RPTAT: QQ .Daron Tony MD, Date Time Electronically viewed and signed by .Daron Tony MD, on 09/27/2016 10:44 .R/
[2016-09-27 11:19] LABS: ADD SCAN DIFF NO
[2016-09-27 11:21] LABS: BASOPHIL # 0.1 10^3/ul (0.0-0.1); BASOPHILS % 0.8 % (0.0-2.0); EOSINOPHILS # 0.2 10^3/ul (0.0-0.5); EOSINOPHILS % 3.8 % (0.0-7.0); HEMATOCRIT 37.3 % (42.0-52.0); HEMOGLOBIN 12.1 g/dl (14.0-18.0); LYMPHOCYTES # 2.2 10^3/ul (0.8-2.9); LYMPHOCYTES % 34.9 % (15.0-51.0); MEAN CORPUSCULAR HEMOGLOBIN 30.3 pg (29.0-33.0); MEAN CORPUSCULAR HGB CONC 32.4 g/dl (32.0-37.0); MEAN CORPUSCULAR VOLUME 93.5 fl (82.0-101.0); MEAN PLATELET VOLUME 10.3 fl (7.4-10.4); MONOCYTE # 0.5 10^3/ul (0.3-0.9); MONOCYTES % 7.4 % (0.0-11.0); NEUTROPHIL # 3.3 10^3/ul (1.6-7.5); NEUTROPHILS % 52.8 % (39.0-77.0); PLATELET COUNT 186 10^3/UL (140-415); RED BLOOD COUNT 3.99 10^6/ul (4.70-6.10); WHITE BLOOD COUNT 6.2 10^3/ul (4.8-10.8)
[2016-09-27 11:46] LABS: CALCIUM 9.1 mg/dl (8.4-10.2); CREATININE 1.38 mg/dl (0.61-1.24); POTASSIUM 4.8 mmol/L (3.5-5.1)
[2016-09-27 11:49] LABS: PT RATIO 1.1
[2016-09-27] MEDS ORDERED: MECL12.574 PO (12:48)
[2016-09-27 12:57] VITALS: BP 145/75; PULSE 68; RESP 18
[2016-09-27 14:31] LABS: INR 1.11; PROTIME 14.4 Sec (12.2-14.2)
== END 2016-09-27 12:58 | disposition home or self-care (01) ==
LOC: E/R 09:47
DX: R42 Dizziness and giddiness (principal); R40.2252 Coma scale, best verbal response, oriented, at arrival to emergency department; I10 Essential (primary) hypertension; I25.10 Atherosclerotic heart disease of native coronary artery without angina pectoris; F17.210 Nicotine dependence, cigarettes, uncomplicated; R40.2142 Coma scale, eyes open, spontaneous, at arrival to emergency department; R40.2362 Coma scale, best motor response, obeys commands, at arrival to emergency department; Z79.82 Long term (current) use of aspirin; Z79.01 Long term (current) use of anticoagulants; Z98.61 Coronary angioplasty status
CPT/HCPCS: 36415; 70450; 80048; 85025; 85610; 93005

== ENCOUNTER 2017-09-03 14:45 | Emergency (ER) | END 2017-09-03 18:40 | disposition left against medical advice (07) ==

== ENCOUNTER 2019-01-25 23:03 | Inpatient (IN) | payer MEDICARE, OTHER ==
[~2019-01-25] VITALS: Ht 170.2 cm; Wt 88.0 kg
[~2019-01-25 23:03] MED LIST changes: +AMLO5TAB4 PO; -ASPI-664 PO; +ASPI-817 PO; +ATOR40TA68 PO; +BUDE6HFA INHALATION; -CARV6.2579 PO; +CLOP75TA27 PO; -CLOP75TA4 PO; -CRES10 PO; +DEXL60CA2 PO; -DOCU-144 PO; +ERGO500013 PO; +ESCI10TA48 PO; -FAMO-18 PO; +HYDR-3980 PO; +ISOS20TA19 PO; -ISOS30TA5 PO; +ISOS60TA PO; +LINA145C PO; -LISI20TA11 PO; +MECL-77 PO; +MEMA10TA PO; +METO-448 PO; -NIT4 SL; +NITR0.4T32 SL; +RANO500T2 PO; +RSV10T PO; +TRIA15CR55 TOP
[2019-01-25] MEDS ORDERED: ATORVASTATIN 80 MG TAB PO ONE (23:30)
[2019-01-26] MEDS ORDERED: HEPARIN 25000 UNITS/250 ML 250 ML IV STA (00:37)
[2019-01-26] MEDS ORDERED: HEPARIN 1000 UNITS/ML 10 ML INJ IV STA (00:37)
[2019-01-26] MEDS ORDERED: ONDANSETRON 4 MG INJ IV PRN (01:00)
[2019-01-26] MEDS ORDERED: ACETAMINOPHEN 325 MG TAB PO PRN ×2 (01:00→04:00)
[2019-01-26] MEDS ORDERED: NITROGLYCERIN (SL) 0.4 MG TAB SL PRN (04:00)
[2019-01-26] MEDS ORDERED: NACL 0.9% 3 ML SYG IV SCH (04:00)
[2019-01-26] MEDS ORDERED: METOPROLOL 25 MG TAB PO SCH (09:00)
[2019-01-26] MEDS: CLOPIDOGREL 75 MG TAB PO SCH (09:08)
[2019-01-26] MEDS: ASPIRIN (EC) 81 MG TAB PO SCH (09:09)
[2019-01-26] MEDS: AMLODIPINE 5 MG TAB PO SCH (09:22)
[2019-01-26] MEDS: FLUTICASONE/VILANTEROL 200-25 INH DEVICE INH SCH (09:23)
[2019-01-26] MEDS ORDERED: morphine 2 MG INJ IV PRN (11:00)
[2019-01-26] MEDS: morphine 2 MG INJ IV PRN ×2 (11:01→21:10)
[2019-01-26 14:00] VITALS: BP 158/67; RESP 22
[2019-01-26 14:20] VITALS: Ht 170.2 cm; Wt 88.0 kg
[2019-01-26] MEDS ORDERED: HEPARIN 1000 UNITS/ML 10 ML INJ IV ONE (15:00)
[2019-01-26 15:03] VITALS: BP 174/74; PULSE 78; RESP 20
[2019-01-26] MEDS: HEPARIN 1000 UNITS/ML 10 ML INJ IV PRN (17:02)
[2019-01-26] MEDS: HEPARIN 25000 UNITS/250 ML 250 ML IV SCH (17:06)
[2019-01-26 20:00] VITALS: BP 178/77; PULSE 84; RESP 20
[2019-01-26] MEDS: ATORVASTATIN 40 MG TAB PO SCH (20:51)
[2019-01-26] MEDS: TAMSULOSIN (SR) 0.4 MG CAP PO SCH (20:51)
[2019-01-26] MEDS: METOPROLOL 25 MG TAB PO SCH (20:52)
[2019-01-26] MEDS: ISOSORBIDE DINITRATE 20 MG TAB PO SCH (20:53)
[2019-01-26] MEDS ORDERED: ATORVASTATIN 40 MG TAB PO SCH (21:00)
[2019-01-26] MEDS ORDERED: NON-FORMULARY/PATIENT OWN MED (Rosuvastatin Calcium* (Crestor*) 10 MG) PO SCH (21:00)
[2019-01-26 23:17] VITALS: BP 153/67; PULSE 71; RESP 22
[2019-01-27] MEDS: HEPARIN 25000 UNITS/250 ML 250 ML IV SCH ×3 (00:51→22:09)
[2019-01-27 03:33] VITALS: BP 151/69; PULSE 77; RESP 21
[2019-01-27] MEDS: ONDANSETRON 4 MG INJ IV PRN (03:44)
[2019-01-27 07:23] VITALS: BP 146/69; PULSE 61; RESP 20
[2019-01-27] MEDS: FLUTICASONE/VILANTEROL 200-25 INH DEVICE INH SCH (09:00)
[2019-01-27] MEDS: ISOSORBIDE DINITRATE 20 MG TAB PO SCH ×3 (09:07→20:14)
[2019-01-27] MEDS: CLOPIDOGREL 75 MG TAB PO SCH (09:07)
[2019-01-27] MEDS: AMLODIPINE 5 MG TAB PO SCH ×2 (09:08→20:15)
[2019-01-27] MEDS: SOD CHLORIDE 0.9% 1,000 ML IV SCH (09:08)
[2019-01-27] MEDS: ASPIRIN (EC) 81 MG TAB PO SCH (09:08)
[2019-01-27] MEDS: METOPROLOL 25 MG TAB PO SCH ×2 (09:08→20:14)
[2019-01-27 11:17] VITALS: BP 143/65; PULSE 60; RESP 20
[2019-01-27] MEDS: morphine 2 MG INJ IV PRN ×2 (15:02→22:01)
[2019-01-27 15:06] VITALS: BP 137/60; PULSE 70; RESP 20
[2019-01-27] MEDS ORDERED: PANTOPRAZOLE (EC) 40 MG TAB PO ONE (20:00)
[2019-01-27 20:07] VITALS: BP 178/80; PULSE 72; RESP 20
[2019-01-27] MEDS: AL HYDROX/MG HYDROX/SIMETH 30 ML CUP PO PRN (20:12)
[2019-01-27] MEDS: TAMSULOSIN (SR) 0.4 MG CAP PO SCH (20:13)
[2019-01-27] MEDS: ATORVASTATIN 40 MG TAB PO SCH (20:15)
[2019-01-28] VITALS (7 sets, daily range): BP systolic 130–187; BP diastolic 61–80; PULSE 71–81; RESP 20–22
[2019-01-28] MEDS: ONDANSETRON 4 MG INJ IV PRN (00:38)
[2019-01-28] MEDS ORDERED: hydrALAzine 20 MG INJ IV ONE (02:15)
[2019-01-28] MEDS ORDERED: MAGNESIUM HYDROXIDE 30ML CUP PO ONE (02:15)
[2019-01-28] MEDS: SOD CHLORIDE 0.9% 1,000 ML IV SCH (04:52)
[2019-01-28] MEDS ORDERED: ONDANSETRON 4 MG INJ IV ONE (05:00)
[2019-01-28] MEDS: PANTOPRAZOLE (EC) 40 MG TAB PO SCH (05:14)
[2019-01-28] MEDS: HEPARIN 25000 UNITS/250 ML 250 ML IV SCH ×2 (06:04→13:42)
[2019-01-28] MEDS ORDERED: MAGNESIUM HYDROXIDE 30ML CUP PO PRN (07:00)
[2019-01-28] MEDS: ISOSORBIDE DINITRATE 20 MG TAB PO SCH ×3 (08:39→21:43)
[2019-01-28] MEDS: METOPROLOL 25 MG TAB PO SCH ×2 (08:40→21:44)
[2019-01-28] MEDS: ASPIRIN (EC) 81 MG TAB PO SCH (08:40)
[2019-01-28] MEDS: CLOPIDOGREL 75 MG TAB PO SCH (08:40)
[2019-01-28] MEDS: AMLODIPINE 5 MG TAB PO SCH ×2 (08:40→21:44)
[2019-01-28] MEDS: FLUTICASONE/VILANTEROL 200-25 INH DEVICE INH SCH (08:51)
[2019-01-28] MEDS: morphine 2 MG INJ IV PRN ×2 (13:37→23:01)
[2019-01-28] MEDS: ATORVASTATIN 40 MG TAB PO SCH (21:44)
[2019-01-28] MEDS: TAMSULOSIN (SR) 0.4 MG CAP PO SCH (21:47)
[2019-01-29] VITALS (7 sets, daily range): BP systolic 132–158; BP diastolic 63–69; PULSE 62–75; RESP 20–22
[2019-01-29] MEDS: SOD CHLORIDE 0.9% 1,000 ML IV SCH (01:15)
[2019-01-29] MEDS: HEPARIN 25000 UNITS/250 ML 250 ML IV SCH ×2 (01:19→03:44)
[2019-01-29] MEDS: PANTOPRAZOLE (EC) 40 MG TAB PO SCH (06:35)
[2019-01-29] MEDS: ASPIRIN (EC) 81 MG TAB PO SCH (10:30)
[2019-01-29] MEDS: CLOPIDOGREL 75 MG TAB PO SCH (10:30)
[2019-01-29] MEDS: AMLODIPINE 5 MG TAB PO SCH ×2 (10:30→21:28)
[2019-01-29] MEDS: ISOSORBIDE DINITRATE 20 MG TAB PO SCH ×3 (10:30→21:28)
[2019-01-29] MEDS: METOPROLOL 25 MG TAB PO SCH ×2 (10:31→21:29)
[2019-01-29] MEDS: FLUTICASONE/VILANTEROL 200-25 INH DEVICE INH SCH (10:32)
[2019-01-29] MEDS: HEPARIN 1000 UNITS/ML 10 ML INJ IV PRN (18:49)
[2019-01-29] MEDS: ATORVASTATIN 40 MG TAB PO SCH (21:27)
[2019-01-29] MEDS: TAMSULOSIN (SR) 0.4 MG CAP PO SCH (22:01)
[2019-01-29] MEDS: morphine 2 MG INJ IV PRN (22:30)
[2019-01-30] MEDS: HEPARIN 25000 UNITS/250 ML 250 ML IV SCH ×5 (00:36→20:38)
[2019-01-30 04:08] VITALS: BP 135/61; PULSE 65; RESP 20
[2019-01-30] MEDS: PANTOPRAZOLE (EC) 40 MG TAB PO SCH (06:41)
[2019-01-30] MEDS: morphine 2 MG INJ IV PRN ×2 (06:42→21:43)
[2019-01-30 07:10] VITALS: BP 155/67; PULSE 67; RESP 20
[2019-01-30 07:16] VITALS: BP 149/95; PULSE 59; RESP 20
[2019-01-30] MEDS: CLOPIDOGREL 75 MG TAB PO SCH (10:03)
[2019-01-30] MEDS: ASPIRIN (EC) 81 MG TAB PO SCH (10:03)
[2019-01-30] MEDS: ISOSORBIDE DINITRATE 20 MG TAB PO SCH ×3 (10:04→20:32)
[2019-01-30] MEDS: AMLODIPINE 5 MG TAB PO SCH ×2 (10:04→20:32)
[2019-01-30] MEDS: METOPROLOL 25 MG TAB PO SCH ×2 (10:05→20:33)
[2019-01-30] MEDS: FLUTICASONE/VILANTEROL 200-25 INH DEVICE INH SCH (10:05)
[2019-01-30 11:00] VITALS: BP 144/67; PULSE 70; RESP 20
[2019-01-30 15:29] VITALS: BP 155/67; PULSE 63; RESP 20
[2019-01-30 20:00] VITALS: BP 155/69; PULSE 74; RESP 19
[2019-01-30] MEDS: ATORVASTATIN 40 MG TAB PO SCH (20:33)
[2019-01-30] MEDS: TAMSULOSIN (SR) 0.4 MG CAP PO SCH (20:33)
[2019-01-31] VITALS (8 sets, daily range): BP systolic 139–178; BP diastolic 63–86; PULSE 64–77; RESP 18–20
[2019-01-31] MEDS: PANTOPRAZOLE (EC) 40 MG TAB PO SCH (06:26)
[2019-01-31] MEDS: CLOPIDOGREL 75 MG TAB PO SCH (09:13)
[2019-01-31] MEDS: HEPARIN 25000 UNITS/250 ML 250 ML IV SCH ×2 (09:13→16:43)
[2019-01-31] MEDS: ASPIRIN (EC) 81 MG TAB PO SCH (09:13)
[2019-01-31] MEDS: ISOSORBIDE DINITRATE 20 MG TAB PO SCH ×3 (09:13→20:57)
[2019-01-31] MEDS: AMLODIPINE 5 MG TAB PO SCH ×2 (09:14→20:57)
[2019-01-31] MEDS: METOPROLOL 25 MG TAB PO SCH ×2 (09:14→20:57)
[2019-01-31] MEDS: FLUTICASONE/VILANTEROL 200-25 INH DEVICE INH SCH (09:14)
[2019-01-31] MEDS: morphine 2 MG INJ IV PRN ×2 (12:42→21:08)
[2019-01-31] MEDS: ATORVASTATIN 40 MG TAB PO SCH (20:56)
[2019-01-31] MEDS: TAMSULOSIN (SR) 0.4 MG CAP PO SCH (20:56)
[2019-02-01] VITALS (20 sets, daily range): BP systolic 130–200; BP diastolic 53–86; PULSE 70–90; RESP 15–36
[2019-02-01] MEDS: HEPARIN 25000 UNITS/250 ML 250 ML IV SCH (00:31)
[2019-02-01] MEDS: PANTOPRAZOLE (EC) 40 MG TAB PO SCH (06:28)
[2019-02-01] MEDS ORDERED: hydrALAzine 20 MG INJ IV ONE (06:30)
[2019-02-01] MEDS ORDERED: MIDAZOLAM 1 MG/ML 2 ML INJ ONE (08:45)
[2019-02-01] MEDS ORDERED: FENTAnyl 50 MCG/ML VIAL ONE (08:45)
[2019-02-01] MEDS ORDERED: IODIXANOL LOCM 100 ML BTL ONE (08:45)
[2019-02-01] MEDS ORDERED: LIDOCAINE 1% (MDV) 20 ML INJ ONE (08:45)
[2019-02-01] MEDS ORDERED: HEPARIN 1000 UNITS/ML 10 ML INJ ONE (08:45)
[2019-02-01] MEDS ORDERED: VERAPAMIL 5 MG INJ ONE (08:46)
[2019-02-01] MEDS ORDERED: NITROGLYCERIN (IC) 100 MCG/ML INJ ONE (10:26)
[2019-02-01] MEDS ORDERED: SOD CHLORIDE 0.9% 1,000 ML IV SCH (10:49)
[2019-02-01] MEDS ORDERED: ACETAMINOPHEN 325 MG TAB PO PRN (11:00)
[2019-02-01] MEDS ORDERED: AL HYDROX/MG HYDROX/SIMETH 30 ML CUP PO PRN (11:00)
[2019-02-01] MEDS ORDERED: ONDANSETRON 4 MG INJ IV PRN (11:00)
[2019-02-01] MEDS: METOPROLOL 25 MG TAB PO SCH ×2 (11:30→21:18)
[2019-02-01] MEDS: ISOSORBIDE DINITRATE 20 MG TAB PO SCH ×3 (11:31→21:19)
[2019-02-01] MEDS: AMLODIPINE 5 MG TAB PO SCH ×2 (11:31→21:19)
[2019-02-01] MEDS: morphine 2 MG INJ IV PRN ×2 (11:50→21:17)
[2019-02-01] MEDS: ASPIRIN (EC) 81 MG TAB PO SCH (14:01)
[2019-02-01] MEDS: CLOPIDOGREL 75 MG TAB PO SCH (14:01)
[2019-02-01] MEDS: FLUTICASONE/VILANTEROL 200-25 INH DEVICE INH SCH (14:01)
[2019-02-01] MEDS: ONDANSETRON 4 MG INJ IV PRN (17:27)
[2019-02-01] MEDS: AL HYDROX/MG HYDROX/SIMETH 30 ML CUP PO PRN (17:30)
[2019-02-01] MEDS: ATORVASTATIN 40 MG TAB PO SCH (21:18)
[2019-02-01] MEDS: TAMSULOSIN (SR) 0.4 MG CAP PO SCH (21:19)
[2019-02-02] VITALS: BP 152/63; PULSE 75; RESP 18
[2019-02-02] MEDS: PANTOPRAZOLE (EC) 40 MG TAB PO SCH (05:32)
[2019-02-02 05:36] VITALS: BP 159/60; PULSE 71; RESP 18
[2019-02-02 07:54] VITALS: BP 149/67; PULSE 73; RESP 18
[2019-02-02] MEDS: CLOPIDOGREL 75 MG TAB PO SCH (08:20)
[2019-02-02] MEDS: ASPIRIN (EC) 81 MG TAB PO SCH (08:20)
[2019-02-02] MEDS: ISOSORBIDE DINITRATE 20 MG TAB PO SCH (08:21)
[2019-02-02] MEDS: AMLODIPINE 5 MG TAB PO SCH (08:22)
[2019-02-02] MEDS: METOPROLOL 25 MG TAB PO SCH (08:22)
[2019-02-02] MEDS: FLUTICASONE/VILANTEROL 200-25 INH DEVICE INH SCH (08:24)
[2019-02-02 11:51] VITALS: BP 137/69; PULSE 68; RESP 18
[2019-02-02] MEDS ORDERED: METOPROLOL 25 MG TAB PO SCH (21:00)
== END 2019-02-02 13:00 | disposition home or self-care (01) | DRG 281 ==
LOC: E/R 23:03 → 6WM 01-26 00:40
PROVIDERS: ADMIT Internal Medicine; ATTEND Internal Medicine
PROC: 4A023N7 Measurement of Cardiac Sampling and Pressure, Left Heart, Percutaneous Approach (ICD-10-PCS; principal; 2019-02-01)
PROC: B211YZZ Fluoroscopy of Multiple Coronary Arteries using Other Contrast (ICD-10-PCS; 2019-02-01)
DX: I21.4 Non-ST elevation (NSTEMI) myocardial infarction (principal); N17.9 Acute kidney failure, unspecified; N13.30 Unspecified hydronephrosis; E87.2 Acidosis; N18.4 Chronic kidney disease, stage 4 (severe); I27.20 Pulmonary hypertension, unspecified; D63.8 Anemia in other chronic diseases classified elsewhere; D63.1 Anemia in chronic kidney disease; F17.200 Nicotine dependence, unspecified, uncomplicated; E78.5 Hyperlipidemia, unspecified; N40.0 Benign prostatic hyperplasia without lower urinary tract symptoms; K21.9 Gastro-esophageal reflux disease without esophagitis; I25.10 Atherosclerotic heart disease of native coronary artery without angina pectoris; I12.9 Hypertensive chronic kidney disease with stage 1 through stage 4 chronic kidney disease, or unspecified chronic kidney disease; E66.9 Obesity, unspecified; Z68.30 Body mass index [BMI] 30.0-30.9, adult; Z79.01 Long term (current) use of anticoagulants; Z79.82 Long term (current) use of aspirin; Z79.02 Long term (current) use of antithrombotics/antiplatelets; Z95.5 Presence of coronary angioplasty implant and graft; Z86.718 Personal history of other venous thrombosis and embolism; Z86.711 Personal history of pulmonary embolism
CPT/HCPCS: 36415; 71045; 74176; 76775; 80048; 80053; 80061; 81001; 81003; 82043; 82270; 82436; 82550; 82553; 82728; 82962; 83036; 83540; 83735; 83880; 84100; 84133; 84153; 84154; 84155; 84300; 84443; 84484; 85025; 85610; 85730; 87086; 88104; 93005; 93306; 93458; 93571; C1887; J0360; J1644; J2250; J2270; J2405; J3010; J7030; Q9967